=== PATIENT | male | born 1960 | race African-American/Black ===

== ENCOUNTER 2018-04-03 11:34 | Day surgery (SDC) | payer OTHER ==
[2018-04-02] MEDS: LACTATED RINGER'S 1,000 ML IV* (17:08)
[~2018-04-03 11:34] MED LIST: CEFAZOLIN 2 GM/50 ML (PMX) 50 ML IVPB; Metronidazole 500 MG in NS 100 ML IVPB
[2018-04-03] MEDS ORDERED: LIDOCAINE 2% (SDV) 5 ML INJ (13:50)
[2018-04-03] MEDS ORDERED: ONDANSETRON 4 MG INJ (13:50)
[2018-04-03] MEDS ORDERED: CEFAZOLIN 1 GM INJ (13:50)
[2018-04-03] MEDS ORDERED: PROPOFOL 20 ML (13:50)
[2018-04-03] MEDS ORDERED: MEPERIDINE 100 MG INJ (13:55)
[2018-04-03] MEDS ORDERED: FENTAnyl 50 MCG/ML VIAL IV ×2 (14:00)
[2018-04-03] MEDS ORDERED: hydrALAzine 20 MG INJ IV (14:00)
[2018-04-03] MEDS ORDERED: EPHEDrine SULFATE 50 MG/5 ML SYG IV (14:00)
[2018-04-03] MEDS ORDERED: OXYCODONE/ACETAMINOPHEN (5/325) TAB PO ×2 (14:00)
[2018-04-03] MEDS ORDERED: MIDAZOLAM 1 MG/ML 2 ML INJ IV (14:00)
[2018-04-03] MEDS ORDERED: MEPERIDINE 25 MG INJ IV (14:00)
[2018-04-03] MEDS ORDERED: DIPHENHYDRAMINE 50 MG INJ IV (14:00)
[2018-04-03] MEDS ORDERED: LABETALOL HCL 20MG INJ IV (14:00)
[2018-04-03] MEDS ORDERED: METOCLOPRAMIDE 10 MG INJ IV (14:00)
[2018-04-03] MEDS: LIDOCAINE 1% (MPF) 30 ML INJ (14:43)
[2018-04-03] MEDS: BUPIVACAINE 0.5%/EPI (SDV) 30 ML INJ (14:43)
[2018-04-03] MEDS: FENTAnyl 50 MCG/ML VIAL IV (15:50)
[2018-04-03] MEDS: ONDANSETRON 4 MG INJ IV (15:50)
== END 2018-04-03 16:52 | disposition home or self-care (01) ==
LOC: SDS 11:34
DX: K60.3 Anal fistula (principal); K62.89 Other specified diseases of anus and rectum; I10 Essential (primary) hypertension; Z86.73 Personal history of transient ischemic attack (TIA), and cerebral infarction without residual deficits
CPT/HCPCS: 45305; 71045; 88304; 93005